=== PATIENT | female | born 1930 | race Caucasian/White ===

== ENCOUNTER → 2019-06-21 12:37 | Outpatient (CLI) | payer MEDICARE ==
[2016-07-08 09:32] VITALS: BMI 23.0
[~2019-06-21 12:37] MED LIST: ARICEPT10 MG PO; BAYER CHEWABLE81 MG PO; COREG12.5 MG PO; HYDROCHLOROTHIA50 MG PO; HYDROCODON-ACE1 EAC7 PO; LANOXIN250 MCG PO; LEXAPRO10 MG PO; MOBIC7.5 MG PO; OMEGA 3 FISH OI1 CAP PO; TIROSINT75 MCG PO; XANAX0.25 MG PO; ZOCOR40 MG PO; prilosec
--- NOTE | 2019-06-25 11:10 | EC ---
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 Ao 173 cm/sec RVOT 60 cm/sec RA cm/sec PA 115 cm/sec AV Gradient Peak 11.93mmHg AV Mean 6.56 mmHg AV Area 1.5 cm MV Gradient Peak 9.26 mmHg MV Mean 3.44 mmHg MV Area cm COMMENTS: Wet Trimmer: 2 MARA MORE Sweatband Drummer: 1 Dr. Long TAPE# PACS Pericardial Effusion N DATE OF SERVICE: PROCEDURE: Echocardiogram. FINDINGS: 1. Left ventricular chamber size is within normal limits. Left ventricular systolic function is normal. Overall ejection fraction estimated at 55%. 2. Left atrium is significantly enlarged greater than 6 cm. Right atrium and right ventricular chamber sizes are as well moderately to severely dilated. 3. Valvular structures have normal structure and motion. ECHOCARDIOGRAM REPORT [id number] ESTRELLA MART 4. Doppler interrogation reveals mild mitral regurgitation, moderate to severe tricuspid regurgitation, no other valvular insufficiency or stenosis. Pulmonary systolic pressure is estimated at 74 mmHg. 5. No evidence of pericardial effusion or left ventricular thrombus. 6. Pacemaker lead is noted throughout the right heart structures. There appears to be significant vegetation on the pacemaker lead in the right ventricle. OVERALL IMPRESSION: Vegetative lesion on the pacemaker wire in the right ventricle that appears to be infectious in nature. TRANSINT:[id number] Voice Confirmation ID: [id number] DOCUMENT ID: [id number] JJ LONG MD at 1110 CC: [id number] DICTATION DATE: 06/21/19 1344 DENTAL INTERN: 06/21/19 1359 DEP CLI 06/21/[address] [facility] [address] [place] [address]
== END | disposition home or self-care (01) ==
LOC: D.HCCECHO 06-04 12:30
PROVIDERS: ATTEND Internal Medicine Interventional Cardiology
DX: I05.9 Rheumatic mitral valve disease, unspecified (principal)